=== PATIENT | male | born 1955 | race Caucasian/White ===

== ENCOUNTER → 2016-12-17 | Outpatient (CLI) | payer OTHER ==
[2016-12-17 18:04] LABS: ALT/SGPT 32 U/L (12-78); BLOOD UREA NITROGEN 16 mg/dl (7-18); BUN/CREATININE RATIO 14.7 (10-20); CALCIUM 9.4 mg/dl (8.5-10.1); CARBON DIOXIDE 32 mmol/L (21-32); CHLORIDE 107 mmol/L (98-107); GLUCOSE 97 mg/dl (70-99); POTASSIUM 4.6 mmol/L (3.5-5.1); SODIUM 141 mmol/L (136-145)
[2016-12-17 18:07] LABS: CHOLESTEROL 245 mg/dl (0-200); CHOLESTEROL/HDL RATIO 8.4; HDL CHOLESTEROL 29 mg/dl; TRIGLYCERIDES 334 mg/dl (0-150); VERY LOW DENSITY LIPOPROT CALC 67 mg/dl
== END | disposition home or self-care (01) ==
LOC: C.LABMFLN 11:57
PROVIDERS: ATTEND Family Medicine
DX: E78.1 Pure hyperglyceridemia (principal); R73.01 Impaired fasting glucose

== ENCOUNTER → 2017-04-08 | Outpatient (CLI) | payer OTHER ==
[2017-04-08 14:16] LABS: CHOLESTEROL/HDL RATIO 8.1
== END | disposition home or self-care (01) ==
LOC: C.LABMFLN 11:31
PROVIDERS: ATTEND Family Medicine
DX: E78.1 Pure hyperglyceridemia (principal)

== ENCOUNTER → 2018-03-18 | Outpatient (CLI) | payer OTHER | END | disposition home or self-care (01) | LOC: C.LABMFLN 15:42 | PROVIDERS: ATTEND Family Medicine | DX: K12.2 Cellulitis and abscess of mouth (principal) ==